=== PATIENT | male | born 1960 | race Caucasian/White ===

== ENCOUNTER 2020-05-23 19:25 | Emergency (ER) | payer MEDICARE, MEDICAID, SELFPAY ==
[2020-05-23 20:00] VITALS: BP 117/81; PULSE 88; RESP 20; TEMP 36.9; O2SAT 98; BMI 30.4
--- NOTE | 2020-05-23 21:30 | ED.NECK ---
HPI - Neck Pain/Injury General Chief Complaint: Neck Pain/Injury Stated Complaint: Multiple complaints Time Seen by Provider: 05/23/20 21:27 Source: patient Limitations: no limitations History of Present Illness HPI Narrative: Patient without any history of injury complaining of pain in the lower neck radiated to his left arm for last 1 month has seen ER doctor before who did x-ray of the neck plan to see his PCP patient is on tramadol for chronic pain. Patient denies any weakness feels tingling in his whole left hand sometimes without any relationship to neck movements no leg weakness no bowel and bladder involvement MD complaint: neck pain Onset (ago): week(s) (4) Related Data Home Medications Medication Instructions Recorded Confirmed atorvastatin 80 mg tablet 80 mg PO DAILY 05/02/20 05/02/20 clonazepam 0.5 mg tablet 0.5 mg PO BID 05/02/20 05/02/20 glipizide 5 mg tablet 5 mg PO DAILY 05/02/20 05/02/20 hydrochlorothiazide 12.5 mg capsule 12.5 mg PO DAILY 05/02/20 05/02/20 metformin 1,000 mg tablet 1,000 mg PO DAILY tab 05/02/20 05/02/20 paroxetine HCl 40 mg tablet 40 mg PO DAILY 05/02/20 05/02/20 saxagliptin 2.5 mg tablet 2.5 mg PO DAILY 05/02/20 05/02/20 Previous Rx's Medication Instructions Recorded gabapentin 600 mg tablet 600 mg PO QID 90 Days #360 tab 05/02/20 naproxen 500 mg tablet 500 mg PO BID PRN 90 Days #180 tab 05/02/20 trazodone 50 mg tablet 50 mg PO BEDTIME PRN 30 Days #30 05/02/20 tab tramadol 50 mg tablet 50 mg PO BID-TID PRN 30 Days #90 05/13/20 tab tramadol 50 mg tablet 50 mg PO TID PRN 15 Days #45 tab 05/21/20 cyclobenzaprine 10 mg PO Q8H #20 tab 05/23/20 prednisone 40 mg PO DAILY 5 Days #10 tab 05/23/20 Allergies Allergy/AdvReac Type Severity Reaction Status Date / Time No Known Allergies Allergy Verified 05/02/20 09:22 Review of Systems Review of Systems: REVIEW OF SYSTEMS: Pertinent positives and negatives are stated above in the history. GEN: no fevers, chills, fatigue HEENT: no nasal congestion, sore throat, ear pain NEURO: no headache, dizziness, focal weakness PULM: no cough, shortness of breath CV: no chest pain, palpitations, LE edema ABD: no abdominal pain, nausea, vomiting, diarrhea : no dysuria, urgency, frequency SKIN: no rash ROS otherwise negative x 10 PMFSH Past Medical History Medical History Anxiety Benign essential hypertension Calcaneal spur, right foot Cervical spondylosis with radiculopathy History of cerebrovascular accident with residual deficit Insomnia Obesity (BMI 30-39.9) Osteoarthritis of right knee Pure hypercholesterolemia Smoker Type 2 diabetes mellitus without complication, without long-term current use of insulin Surgical History History of appendectomy History of foot surgery Family History Family History Father No problems noted. Mother No problems noted. Social History Social History Smoking Status: Current every day smoker Tobacco Type: Cigarette Cigarettes Per Day: 8 Advance Directives: No Advance Directives Information Provided: Yes Physical Exam Vital Signs: Vital Signs: Last Vital Signs Temp 98.5 F 05/23/20 20:00 Pulse 88 05/23/20 20:00 Resp 20 05/23/20 20:00 BP 117/81 05/23/20 20:00 Pulse Ox 98 05/23/20 20:00 Body Mass Index 30.4 Const: General: cooperative, healthy appearing, comfortable, no acute distress, well developed, alert and awake Orientation/consciousness: oriented to person, oriented to place, oriented to time and patient oriented x3 HENMT: Head: Yes normal to inspection Eyes: General: appearance normal, both eyes and all related structures Neck: Neck: Yes normal visual inspection Thyroid: Thyroid normal Carotids: normal carotid upstroke Resp: Effort & Inspection: normal respiratory effort Auscultation: clear to auscultation bilaterally Cardio: Jugular venous distension: no JVD Palpation: normal PMI Rate: regular rate Rhythm: regular rhythm Heart sounds: S1 normal heart sound present and S2 normal heart sound present Back/Spine/Pelvis: Cervical Spine: normal cervical lordosis, cervical ROM normal, No Lhermitte's sign positive, No loss of normal cervical lordosis, cervical muscular tenderness, pain with cervical ROM, No Cervical spine tenderness and No step off deformity Neuro: General: oriented to person, oriented to place, oriented to time, patient oriented x3, gait normal, tone normal, moves all extremities, Normal light touch and pain sensation and no focal motor deficits Extrem: General: Yes normal to inspection, Yes full ROM, Yes capillary refill normal, Yes normal exam except as noted and Yes no joint enlargement Left upper extremity: normal to inspection, full ROM, normal capillary refill, cyanosis, edema, no joint enlargement and shoulder/upper arm Details: tenderness (Rotator cuff) MDM - Neck Pain/Injury MDM Narrative Medical decision making narrative: patient with cervical arthritis with episodic left hand tingling sensation without any motor deficit CT C-spine showed diffuse arthritis C5-C7 without any significant spinal cord compression, patient advised to follow-up with primary care doctor prednisone was given and patient already on tramadol Discharge Plan Discharge Clinical Impression: Arthritis of facet joint of cervical spine Patient Disposition: Home, Self-Care Instructions: Cervical Radiculopathy (ED) Additional Instructions: Take pain medication as prescribed follow-up with your primary care doctor for further evaluation including MRI also to follow up with physical therapy Prescriptions: New cyclobenzaprine 10 mg tablet 10 mg PO Q8H Qty: 20 RF: 0 prednisone 20 mg tablet 40 mg PO DAILY 5 Days Qty: 10 RF: 0 No Action tramadol 50 mg tablet 50 mg PO BID-TID PRN (Reason: increased pain) 30 Days Qty: 90 RF: 0 tramadol 50 mg tablet 50 mg PO TID PRN (Reason: pain) 15 Days Qty: 45 RF: 1 Onglyza 2.5 mg tablet 2.5 mg PO DAILY RF: 0 clonazepam 0.5 mg tablet 0.5 mg PO BID RF: 0 glipizide 5 mg tablet 5 mg PO DAILY RF: 0 paroxetine HCl 40 mg tablet 40 mg PO DAILY RF: 0 hydrochlorothiazide 12.5 mg capsule 12.5 mg PO DAILY RF: 0 atorvastatin 80 mg tablet 80 mg PO DAILY RF: 0 metformin 1,000 mg tablet 1,000 mg PO DAILY RF: 0 gabapentin 600 mg tablet 600 mg PO QID 90 Days Qty: 360 RF: 1 naproxen 500 mg tablet 500 mg PO BID PRN (Reason: pain) 90 Days Qty: 180 RF: 1 trazodone 50 mg tablet 50 mg PO BEDTIME PRN (Reason: sleep) 30 Days Qty: 30 RF: 2 Interventions: ED Discharge Assessment Last Done: 05/23/20 23:37 Discharge Date/Time: 05/23/20 23:37
--- NOTE | 2020-05-23 22:00 | CT_ITS ---
EXAMINATION: CT CERVICAL SPINE WITHOUT CONTRAST CLINICAL INFORMATION: Radicular neuropathy C6-C7 COMPARISON: None. TECHNIQUE: Contiguous helical images of the cervical spine were obtained without IV contrast. Multiplanar reconstructions were performed. This CT examination was performed using dose optimization techniques as appropriate, variously including the following: *Automated exposure control *Adjustment of mA and/or kV according to patient size (this includes techniques or standardized protocols for targeted exams where dose is matched to indication/reason for exam; i.e. extremities or head) *Use of iterative reconstruction technique DLP: 531 mGy-cm FINDINGS: There is anatomic alignment of the vertebral bodies and posterior elements. The atlantoaxial and atlantooccipital articulations are intact. Vertebral body heights are maintained. There is multilevel intervertebral disc space narrowing with endplate osteophyte formation and facet arthropathy. This is most prevalent at C5-C6 and C6-C7. There is mild narrowing of the spinal canal and neuroforaminal at these levels. No evidence of acute fracture. No prevertebral soft tissue swelling. There is no cervical lymphadenopathy. The visualized thyroid gland is unremarkable. Chronic left cerebellar hemispheric infarct versus arachnoid cyst.. The visualized lung apices are clear. CT/CT cervical spine wo con IMPRESSION: No evidence for acute injury to the cervical spine. Degenerative changes which are most prevalent at the lower cervical spine with associated mild narrowing of the spinal canal and neural foramina.
[2020-05-23] MEDS: oxyCODONE HCl Immed Release 5 MG TABLET 10 MG PO (22:45)
[2020-05-23] MEDS: dexAMETHasone 2 MG TABLET 10 MG PO (22:45)
[2020-05-23] MEDS: Cyclobenzaprine HCl 10 MG TABLET PO (22:45)
== END 2020-05-23 23:37 | disposition home or self-care (01) ==
PROVIDERS: Emergency Provider Internal Medicine; PCP Internal Medicine
DX: M47.22 Other spondylosis with radiculopathy, cervical region (principal); E11.9 Type 2 diabetes mellitus without complications; I10 Essential (primary) hypertension; F17.200 Nicotine dependence, unspecified, uncomplicated; Z86.73 Personal history of transient ischemic attack (TIA), and cerebral infarction without residual deficits; Z79.84 Long term (current) use of oral hypoglycemic drugs; Z79.899 Other long term (current) drug therapy
CPT/HCPCS: 72125; 99283; 99284; J8540

== ENCOUNTER → 2020-08-27 13:01 | Outpatient (BNVA) | payer MEDICARE, MEDICAID, SELFPAY | PROVIDERS: PCP Internal Medicine; Visit Provider Nurse Practitioner Family | DX: M47.22 Other spondylosis with radiculopathy, cervical region (principal); M47.27 Other spondylosis with radiculopathy, lumbosacral region; M53.3 Sacrococcygeal disorders, not elsewhere classified; I69.30 Unspecified sequelae of cerebral infarction; Z79.899 Other long term (current) drug therapy | CPT/HCPCS: 99202 ==

== ENCOUNTER → 2020-09-04 08:08 | Outpatient (BNVA) | payer MEDICARE, MEDICAID, SELFPAY | PROVIDERS: Visit Provider Nurse Practitioner Family | DX: M47.22 Other spondylosis with radiculopathy, cervical region (principal); M47.27 Other spondylosis with radiculopathy, lumbosacral region; M53.3 Sacrococcygeal disorders, not elsewhere classified; I69.30 Unspecified sequelae of cerebral infarction; Z79.899 Other long term (current) drug therapy | CPT/HCPCS: 99212 ==